=== PATIENT | female | born 1950 | race Caucasian/White ===

== ENCOUNTER 2018-12-05 06:21 | Observation (INO) ==
[2018-12-05] MEDS ORDERED: IOPAMIDOL 100 ML BOTTLE IV ONE (06:22)
[2018-12-05 06:42] LABS: POC Blood Urea Nitrogen 17 mg/dl (8-23); POC CO2 26 mmol/L (22-30); POC Calcium, Ionized 1.06 mmol/L (1.16-1.32); POC Chloride 97 mmol/L (96-108); POC Creatinine 0.9 mg/dl (0.6-1.1); POC Glucose, Random 131 mg/dL (70-105); POC Potassium 3.3 mmol/L (3.3-5.1); POC Sodium 136 mmol/L (133-145)
[2018-12-05] MEDS ORDERED: LACTATED RINGERS 1,000 ML IV ONE (07:16)
[2018-12-05] MEDS ORDERED: PROMETHAZINE 25 MG/ML VIAL IV ONE ×2 (07:35→12:45)
[2018-12-05] MEDS ORDERED: HYDROmorphone 2 MG/ML VIAL IV PRN (07:42)
--- NOTE | 2018-12-05 07:43 | Emergency Department Note ---
Nausea/Vomiting/Diarrhea HPI - General Source: patient Mode of arrival: ambulatory Limitations: no limitations - History of Present Illness MD complaint: nausea, vomiting, diarrhea <Edgar Francisco - Last Filed: 12/05/18 08:52> <Wilberto Olivier - Last Filed: 12/06/18 07:17> - General Chief complaint: Nausea/Vomiting/Diarrhea Stated complaint: n/v, abd pain Time Seen by Provider: 12/05/18 07:32 - History of Present Illness HPI Narrative: Patient feels like she has a flare up of her ulcerative colitis. She states she occasionally gets constipation and then she takes something for the constipation and when she starts developing diarrhea the diarrhea does not seem to settle down or stop it. Seems like she has chronic diarrhea most the time. She has had some crampy abdominal pain, seen here yesterday morning, prescribed Phenergan after she was given some IV fluids and she has not yet filled her prescription for Phenergan. Does have nausea. Decreased by mouth intake last 24 hours. Also diarrhea last 24 hours. Feels weak in general but still ambulatory. No chest pain no cough no fevers or chills. Does have some low back pain on the right side denies flank pain. (Edgar Francisco) - Related Data Home Medications Medication Instructions Recorded Confirmed Levothyroxine [Synthroid] 125 mcg PO DAILY 07/09/16 12/05/18 Previous Rx's Medication Instructions Recorded Levofloxacin [Levaquin] 500 mg PO DAILY #10 tab 12/05/18 metroNIDAZOLE [Flagyl] 500 mg PO TID #30 tab 12/05/18 Allergies Allergy/AdvReac Type Severity Reaction Status Date / Time acetaminophen [ACETAMINOPHEN] Allergy Mild "PASS OUT" Verified 12/05/18 15:48 aspirin [ASPIRIN] Allergy Mild "PASS OUT" Verified 12/05/18 15:48 morphine [MORPHINE] Allergy Mild EMESIS Verified 12/05/18 15:48 ondansetron [From Zofran] Allergy Verified 12/05/18 06:29 polyethylene glycol 3350 Allergy Unknown Verified 12/05/18 06:29 [From Miralax] hydrocodone [HYDROCODONE] AdvReac Mild NAUSEA Verified 12/05/18 15:48 EMESIS Review of Systems Constitutional: Denies: fever, chills Eyes: Denies: eye pain ENT ED: Denies: ear pain, throat pain Cardiovascular: Reports: dyspnea on exertion. Denies: chest pain, palpitations Respiratory: Denies: shortness of breath, cough Gastrointestinal: Reports: abdominal pain, nausea, vomiting Genitourinary: Denies: dysuria, urgency, frequency Musculoskeletal: Reports: back pain. Denies: joint swelling Integumentary: Denies: rash Neurological: Reports: weakness. Denies: headache Endocrine: Reports: fatigue Hematological/Lymphatic: Denies: easy bleeding Allergic/Immunologic: Denies: facial swelling <Edgar Francisco - Last Filed: 12/05/18 08:52> Past Medical History - Past Medical History Source: old records reviewed Medical history: Reports: CAD (coronary artery disease), myocardial infarction, thyroid disease, other (history of endocarditis and meningitis, pancreatitis; diverticulitis; heart murmur. DENIES PUD, KIDNEY STONES.) Psychiatric history: Denies: anxiety, depression Surgical history ED: Reports: appendectomy, thyroidectomy Family history: Reports: non-contributory - Social History smoking status: Current every day smoker Alcohol use: Reports: None Drug use: Reports: none <Edgar Francisco - Alex Filed: 12/05/18 08:52> Physical Exam Limitations: no limitations General appearance: alert, in no apparent distress Head: atraumatic, normocephalic, normal inspection Eye: Present: normal appearance, PERRL, EOMI. Absent: scleral icterus, conjunct ival injection ENT: normal exam, normal oropharynx, mucous membranes moist, TM's normal bilaterally Neck: Present: normal inspection, full ROM, trachea midline. Absent: tenderness, meningismus, lymphadenopathy, thyromegaly Chest: Present: normal inspection, symmetric chest wall rise Respiratory: Present: normal lung sounds bilaterally. Absent: respiratory distress, rales/crackles, wheezes Cardiovascular: Present: regular rate, normal rhythm, systolic murmur Abdominal: Present: soft, normal bowel sounds. Absent: distention, tenderness, guarding, rebound Extremities: Present: normal inspection, full ROM. Absent: tenderness Back: Present: normal inspection. Absent: CVA tenderness (R), CVA tenderness (L) Neurological: Present: alert, oriented X3, CN II-XII intact. Absent: motor sensory deficit Psychiatric: Present: normal affect Skin: Present: warm, dry, intact, normal color. Absent: rash, diaphoresis, erythema, pallor <Edgar Francisco - Last Filed: 12/05/18 08:52> Course <Edgar Francisco - Last Filed: 12/05/18 08:52> - Reevaluation(s) Reevaluation #1: White blood cell count elevated at 20,000. Also she has [address] out to Dr. Quick 9 AM. Started on antibiotics. Abdominal x-rays ordered. (Edgar Francisco) Vital Signs Temperature 98.3 F 12/05/18 06:24 Pulse Rate 74 12/05/18 06:24 Respiratory Rate 18 12/05/18 06:24 Blood Pressure 160/60 12/05/18 06:24 Pulse Oximetry (%) 100 12/05/18 06:24 Temperature 98 F 12/06/18 04:00 Pulse Rate 72 12/06/18 04:00 Respiratory Rate 16 12/06/18 04:00 Blood Pressure 128/67 12/06/18 04:00 Pulse Oximetry (%) 97 12/06/18 04:00 Nausea/Vomiting/Diarrhea - Lab Data Result diagrams: 12/05/18 06:38 12/05/18 06:38 <Edgar Francisco - Last Filed: 12/05/18 08:52> - Lab Data Result diagrams: 12/06/18 03:58 12/06/18 03:58 <Wilberto Olivier - Last Filed: 12/06/18 07:17> - [facility] Narrative Medical decision making narrative: Continuation of Dr. Francisco's work-up. WBC was elevated at 20,000. CT of the abdomen revealed diverticulosis but no diverticulitis. Remainder of the CT was negative. Patient continued having vomiting. Dr Castelan contacted and patient to be admitted for protracted vomiting and elevated WBCs (Wilberto Olivier) - Lab Data Lab Results 12/05/18 12/05/18 12/05/18 Range/Units 06:34 06:38 06:38 WBC 20.5 H (4.5-11.0) K/mcL RBC 4.84 (4.00-5.20) M/mcL Hgb 13.8 (12.0-15.0) g/dL Hct 42.8 (36.0-48.0) % POC Hct 43.0 (36.0-48.0) % MCV 88.4 (80.0-100.0) fL MCH 28.5 (26.0-34.0) pg MCHC 32.3 (31.0-36.0) g/dL RDW 12.9 (11.5-14.5) % Plt Count 309 (140-440) K/mcL MPV 9.7 (7.4-10.4) fL Total Counted 100 Seg Neutrophils % 80 H (38-78) % Band Neutrophils % 5 (0-10) % Lymphocytes % 10 L (15-49) % Monocytes % (Manual) 4 (1-12) % Eosinophils % (Manual) 1 (0-7) % Platelet Estimate Normal (NORMAL) RBC Morphology Normal (NORMAL) VBG Lactic Acid (0.5-2.0) mmol/L POC Sodium 136 (133-145) mmol/L Sodium 136 (133-145) mmol/L POC Potassium 3.3 (3.3-5.1) mmol/L Potassium 3.3 (3.3-5.1) mmol/L POC Chloride 97 (96-108) mmol/L Chloride 94 L (96-108) mmol/L Carbon Dioxide 24 (22-30) mmol/L POC Total CO2 26 (22-30) mmol/L Anion Gap 18.0 H (8-16) POC BUN 17 (8-23) mg/dl BUN 17 (8-23) mg/dl Creatinine 0.9 (0.6-1.1) mg/dl POC Creatinine 0.9 (0.6-1.1) mg/dl GFR Calculation 67 Glucose 125 H (70-105) mg/dL POC Glucose 131 H (70-105) mg/dL Calcium 9.0 (8.6-10.4) mg/dl POC WB Ioniz Calcium 1.06 L (1.16-1.32) mmol/L Total Bilirubin 0.3 (0.0-1.0) mg/dL AST 18 (0-37) U/l ALT 16 (0-40) U/l Alkaline Phosphatase 95 (39-117) U/L C-Reactive Protein 0.8 (0.0-0.8) mg/dl Total Protein 7.3 (5.9-8.4) gm/dL Albumin 4.2 (3.2-5.2) gm/dL Globulin 3.1 (2.2-3.7) gm/dL Albumin/Globulin Ratio 1.4 (1.0-2.3) Urine Color Urine Appearance Urine pH (5.0-9.0) Ur Specific [place] (1.000-1.035) Urine Protein (NEG) mg/dL Urine Glucose (UA) (NEG) mg/dL Urine Ketones (NEG) mg/dL Urine Occult Blood (<0.03) mg/dL Urine Nitrate (NEG) Urine Bilirubin (NEG) mg/dL Urine Urobilinogen (NEG) mg/dL Ur Leukocyte Esterase (NEG) /uL Urine RBC (0-1) /hpf Urine WBC (0-4) /hpf Ur Squamous Epith Cells (0-4) /hpf Ur Transition Epith Cell (0-2) /hpf Urine Bacteria (0) /hpf Urine Mucus (0) /hpf Ur Culture Indicated? 12/05/18 12/05/18 Range/Units 07:57 09:30 WBC (4.5-11.0) K/mcL RBC (4.00-5.20) M/mcL Hgb (12.0-15.0) g/dL Hct (36.0-48.0) % POC Hct (36.0-48.0) % MCV (80.0-100.0) fL MCH (26.0-34.0) pg MCHC (31.0-36.0) g/dL RDW (11.5-14.5) % Plt Count (140-440) K/mcL MPV (7.4-10.4) fL Total Counted Seg Neutrophils % (38-78) % Band Neutrophils % (0-10) % Lymphocytes % (15-49) % Monocytes % (Manual) (1-12) % Eosinophils % (Manual) (0-7) % Platelet Estimate (NORMAL) RBC Morphology (NORMAL) VBG Lactic Acid 1.2 (0.5-2.0) mmol/L POC Sodium (133-145) mmol/L Sodium (133-145) mmol/L POC Potassium (3.3-5.1) mmol/L Potassium (3.3-5.1) mmol/L POC Chloride (96-108) mmol/L Chloride (96-108) mmol/L Carbon Dioxide (22-30) mmol/L POC Total CO2 (22-30) mmol/L Anion Gap (8-16) POC BUN (8-23) mg/dl BUN (8-23) mg/dl Creatinine (0.6-1.1) mg/dl POC Creatinine (0.6-1.1) mg/dl GFR Calculation Glucose (70-105) mg/dL POC Glucose (70-105) mg/dL Calcium (8.6-10.4) mg/dl POC WB Ioniz Calcium (1.16-1.32) mmol/L Total Bilirubin (0.0-1.0) mg/dL AST (0-37) U/l ALT (0-40) U/l Alkaline Phosphatase (39-117) U/L C-Reactive Protein (0.0-0.8) mg/dl Total Protein (5.9-8.4) gm/dL Albumin (3.2-5.2) gm/dL Globulin (2.2-3.7) gm/dL Albumin/Globulin Ratio (1.0-2.3) Urine Color Straw Urine Appearance Clear Urine pH 6.0 (5.0-9.0) Ur Specific [place] 1.014 (1.000-1.035) Urine Protein 30 A (NEG) mg/dL Urine Glucose (UA) Negative (NEG) mg/dL Urine Ketones 20 A (NEG) mg/dL Urine Occult Blood Neg (<0.03) mg/dL Urine Nitrate Neg (NEG) Urine Bilirubin Neg (NEG) mg/dL Urine Urobilinogen Neg (NEG) mg/dL Ur Leukocyte Esterase Neg (NEG) /uL Urine RBC 1 (0-1) /hpf Urine WBC 1 (0-4) /hpf Ur Squamous Epith Cells < 1 (0-4) /hpf Ur Transition Epith Cell < 1 (0-2) /hpf Urine Bacteria 0 (0) /hpf Urine Mucus Few (0) /hpf Ur Culture Indicated? No Disposition Pt seen by DRYWALL TAPER/PA only: No <Edgar Francisco - Last Filed: 12/05/18 08:52> <Wilberto Olivier - Last Filed: 12/06/18 07:17> Clinical Impression: Colitis, Nausea & vomiting Disposition: Xfer As Inpt ([facility]) Condition: Fair
[2018-12-05 07:50] LABS: Hematocrit 42.8 % (36.0-48.0); Hemoglobin 13.8 g/dL (12.0-15.0); Mean Cell Volume 88.4 fL (80.0-100.0); Mean Corpuscular HGB Conc 32.3 g/dL (31.0-36.0); Mean Platelet Volume 9.7 fL (7.4-10.4); Platelet Count 309 K/mcL (140-440); RBC 4.84 M/mcL (4.00-5.20); Red Cell Distribution Width 12.9 % (11.5-14.5); WBC 20.5 K/mcL (4.5-11.0)
[2018-12-05] MEDS: LACTATED RINGERS 1,000 ML IV SCH ×2 (07:54→16:27)
[2018-12-05 08:16] LABS: ALT/SGPT 16 U/l (0-40); AST/SGOT 18 U/l (0-37); Albumin 4.2 gm/dL (3.2-5.2); Albumin/Globulin Ratio 1.4 (1.0-2.3); Alkaline Phosphatase 95 U/L (39-117); Bilirubin,Total 0.3 mg/dL (0.0-1.0); Blood Urea Nitrogen 17 mg/dl (8-23); C-Reactive Protein 0.8 mg/dl (0.0-0.8); Carbon Dioxide 24 mmol/L (22-30); Chloride 94 mmol/L (96-108); Globulin 3.1 gm/dL (2.2-3.7); Glomerular Filtration Rate 67; Glucose 125 mg/dL (70-105)
[2018-12-05 08:21] LABS: Band Neutrophils % 5 % (0-10); Eosinophils % (Manual) 1 % (0-7); Lymphocytes % 10 % (15-49); Monocytes % (Manual) 4 % (1-12); Platelet Estimate NORMAL (NORMAL); RBC Morphology NORMAL (NORMAL); Segmented Neutrophils % 80 % (38-78)
[2018-12-05] MEDS ORDERED: metroNIDAZOLE 500 MG/100 ML BAG IV ONE (08:52)
[2018-12-05] MEDS ORDERED: CIPROFLOXACIN 400 MG/200 ML BAG IV ONE (08:53)
[2018-12-05 09:08] LABS: Appearance,Urine CLEAR; Bacteria,Urine 0 /hpf (0); Bilirubin,Urine NEG (NEG); Color,Urine STRAW; Culture Indicated,Urine NO; Glucose,Urine (UA) NEGATIVE (NEG); Ketones,Urine 20 mg/dL (NEG); Leukocyte Esterase,Urine NEG /uL (NEG); Mucus,Urine FEW /hpf (0); Nitrate,Urine NEG (NEG); Protein,Urine 30 mg/dL (NEG); Specific Gravity,Urine 1.014 (1.000-1.035); Urine Blood NEG mg/dL (<0.03); Urine RBC 1 /hpf (0-1); Urine Squamous Epithelial Cell < 1 /hpf (0-4); Urine Transitional Epi Cells < 1 /hpf (0-2); Urine WBC 1 /hpf (0-4); Urobilinogen,Urine NEG (NEG)
--- NOTE | 2018-12-05 09:51 | Emergency Department Note ---
Nausea/Vomiting/Diarrhea HPI - General Chief complaint: Nausea/Vomiting/Diarrhea Stated complaint: n/v, abd pain Time Seen by Provider: 12/05/18 07:32 Source: patient Mode of arrival: ambulatory Limitations: no limitations - History of Present Illness MD complaint: nausea, vomiting, diarrhea - Related Data Home Medications Medication Instructions Recorded Confirmed Levothyroxine [Synthroid] 125 mcg PO DAILY 07/09/16 03/31/18 Previous Rx's Medication Instructions Recorded Levofloxacin [Levaquin] 500 mg PO DAILY #10 tab 12/05/18 metroNIDAZOLE [Flagyl] 500 mg PO TID #30 tab 12/05/18 Allergies Allergy/AdvReac Type Severity Reaction Status Date / Time acetaminophen [ACETAMINOPHEN] Allergy Unknown "PASS OUT" Verified 12/05/18 06:29 aspirin [ASPIRIN] Allergy Unknown "PASS OUT" Verified 12/05/18 06:29 morphine [MORPHINE] Allergy Unknown EMESIS Verified 12/05/18 06:29 ondansetron [From Zofran] Allergy Verified 12/05/18 06:29 polyethylene glycol 3350 Allergy Unknown Verified 12/05/18 06:29 [From Miralax] hydrocodone [HYDROCODONE] AdvReac Unknown NAUSEA Verified 12/05/18 06:29 EMESIS Review of Systems Constitutional: Denies: fever, chills Eyes: Denies: eye pain ENT ED: Denies: ear pain, throat pain Cardiovascular: Reports: dyspnea on exertion. Denies: chest pain, palpitations Respiratory: Denies: shortness of breath, cough Gastrointestinal: Reports: abdominal pain, nausea, vomiting Genitourinary: Denies: dysuria, urgency, frequency Musculoskeletal: Reports: back pain. Denies: joint swelling Integumentary: Denies: rash Neurological: Reports: weakness. Denies: headache Endocrine: Reports: fatigue Hematological/Lymphatic: Denies: easy bleeding Allergic/Immunologic: Denies: facial swelling Past Medical History - Past Medical History Medical history: Reports: CAD (coronary artery disease), myocardial infarction, thyroid disease, other (history of endocarditis and meningitis, pancreatitis; diverticulitis; heart murmur. DENIES PUD, KIDNEY STONES.) Psychiatric history: Denies: anxiety, depression Surgical history ED: Reports: appendectomy, thyroidectomy - Social History smoking status: Current every day smoker Alcohol use: Reports: None Drug use: Reports: none Physical Exam Limitations: no limitations General appearance: alert, in no apparent distress Course Vital Signs Temperature 98.3 F 12/05/18 06:24 Pulse Rate 74 12/05/18 06:24 Respiratory Rate 18 12/05/18 06:24 Blood Pressure 160/60 12/05/18 06:24 Pulse Oximetry (%) 100 12/05/18 06:24 Temperature 98.3 F 12/05/18 06:24 Pulse Rate 70 12/05/18 12:04 Respiratory Rate 18 12/05/18 06:24 Blood Pressure 166/75 12/05/18 12:01 Pulse Oximetry (%) 96 12/05/18 12:04 Nausea/Vomiting/Diarrhea - MDM Narrative Medical decision making narrative: Continuation of Dr. Francisco's work-up patient has been unable to give us a stool sample she has not had diarrhea for the past 24 hours. States yesterday she had nausea vomiting with some diarrhea with some diffuse abdominal pain this time she has no signs or symptoms but she was given a pain injection WBC is 20,500 and hemoglobin 13.8 hematocrit of 42.8 two-view abdomen is negative with no air-fluid levels. CT of the abdomen has been ordered with contrast. Patient had a colonoscopy 10 years ago which she states was normal she was referred to tin cutter 1 year ago for similar symptoms but she became too busy to keep that appointment as her was in poor health at that time. She was referred to Dr. Barfield but has not yet made that appointment. She has not been diagnosed with ulcerative colitis and is not on any medications for this. States her previous colonoscopy showed diverticulosis but no diverticulitis urine test is negativeSodium is 136 the potassium 3.3 the BUN is 17 the creatinine 0.[address] of the abdomen shows no diverticulitis with some diverticulosis no other abnormality seen. Waiting for her to give us a stool sample she has a referral to see Dr. Barfield for colonoscopy and continued work-up Dr. Francisco as ordered Cipro and Flagyl - Lab Data Result diagrams: 12/05/18 06:38 12/05/18 06:38 Lab Results 12/05/18 12/05/18 12/05/18 Range/Units 06:34 06:38 06:38 WBC 20.5 H (4.5-11.0) K/mcL RBC 4.84 (4.00-5.20) M/mcL Hgb 13.8 (12.0-15.0) g/dL Hct 42.8 (36.0-48.0) % POC Hct 43.0 (36.0-48.0) % MCV 88.4 (80.0-100.0) fL MCH 28.5 (26.0-34.0) pg MCHC 32.3 (31.0-36.0) g/dL RDW 12.9 (11.5-14.5) % Plt Count 309 (140-440) K/mcL MPV 9.7 (7.4-10.4) fL Total Counted 100 Seg Neutrophils % 80 H (38-78) % Band Neutrophils % 5 (0-10) % Lymphocytes % 10 L (15-49) % Monocytes % (Manual) 4 (1-12) % Eosinophils % (Manual) 1 (0-7) % Platelet Estimate Normal (NORMAL) RBC Morphology Normal (NORMAL) VBG Lactic Acid (0.5-2.0) mmol/L POC Sodium 136 (133-145) mmol/L Sodium 136 (133-145) mmol/L POC Potassium 3.3 (3.3-5.1) mmol/L Potassium 3.3 (3.3-5.1) mmol/L POC Chloride 97 (96-108) mmol/L Chloride 94 L (96-108) mmol/L Carbon Dioxide 24 (22-30) mmol/L POC Total CO2 26 (22-30) mmol/L Anion Gap 18.0 H (8-16) POC BUN 17 (8-23) mg/dl BUN 17 (8-23) mg/dl Creatinine 0.9 (0.6-1.1) mg/dl POC Creatinine 0.9 (0.6-1.1) mg/dl GFR Calculation 67 Glucose 125 H (70-105) mg/dL POC Glucose 131 H (70-105) mg/dL Calcium 9.0 (8.6-10.4) mg/dl POC WB Ioniz Calcium 1.06 L (1.16-1.32) mmol/L Total Bilirubin 0.3 (0.0-1.0) mg/dL AST 18 (0-37) U/l ALT 16 (0-40) U/l Alkaline Phosphatase 95 (39-117) U/L C-Reactive Protein 0.8 (0.0-0.8) mg/dl Total Protein 7.3 (5.9-8.4) gm/dL Albumin 4.2 (3.2-5.2) gm/dL Globulin 3.1 (2.2-3.7) gm/dL Albumin/Globulin Ratio 1.4 (1.0-2.3) Urine Color Urine Appearance Urine pH (5.0-9.0) Ur Specific [place] (1.000-1.035) Urine Protein (NEG) mg/dL Urine Glucose (UA) (NEG) mg/dL Urine Ketones (NEG) mg/dL Urine Occult Blood (<0.03) mg/dL Urine Nitrate (NEG) Urine Bilirubin (NEG) mg/dL Urine Urobilinogen (NEG) mg/dL Ur Leukocyte Esterase (NEG) /uL Urine RBC (0-1) /hpf Urine WBC (0-4) /hpf Ur Squamous Epith Cells (0-4) /hpf Ur Transition Epith Cell (0-2) /hpf Urine Bacteria (0) /hpf Urine Mucus (0) /hpf Ur Culture Indicated? 12/05/18 12/05/18 Range/Units 07:57 09:30 WBC (4.5-11.0) K/mcL RBC (4.00-5.20) M/mcL Hgb (12.0-15.0) g/dL Hct (36.0-48.0) % POC Hct (36.0-48.0) % MCV (80.0-100.0) fL MCH (26.0-34.0) pg MCHC (31.0-36.0) g/dL RDW (11.5-14.5) % Plt Count (140-440) K/mcL MPV (7.4-10.4) fL Total Counted Seg Neutrophils % (38-78) % Band Neutrophils % (0-10) % Lymphocytes % (15-49) % Monocytes % (Manual) (1-12) % Eosinophils % (Manual) (0-7) % Platelet Estimate (NORMAL) RBC Morphology (NORMAL) VBG Lactic Acid 1.2 (0.5-2.0) mmol/L POC Sodium (133-145) mmol/L Sodium (133-145) mmol/L POC Potassium (3.3-5.1) mmol/L Potassium (3.3-5.1) mmol/L POC Chloride (96-108) mmol/L Chloride (96-108) mmol/L Carbon Dioxide (22-30) mmol/L POC Total CO2 (22-30) mmol/L Anion Gap (8-16) POC BUN (8-23) mg/dl BUN (8-23) mg/dl Creatinine (0.6-1.1) mg/dl POC Creatinine (0.6-1.1) mg/dl GFR Calculation Glucose (70-105) mg/dL POC Glucose (70-105) mg/dL Calcium (8.6-10.4) mg/dl POC WB Ioniz Calcium (1.16-1.32) mmol/L Total Bilirubin (0.0-1.0) mg/dL AST (0-37) U/l ALT (0-40) U/l Alkaline Phosphatase (39-117) U/L C-Reactive Protein (0.0-0.8) mg/dl Total Protein (5.9-8.4) gm/dL Albumin (3.2-5.2) gm/dL Globulin (2.2-3.7) gm/dL Albumin/Globulin Ratio (1.0-2.3) Urine Color Straw Urine Appearance Clear Urine pH 6.0 (5.0-9.0) Ur Specific [place] 1.014 (1.000-1.035) Urine Protein 30 A (NEG) mg/dL Urine Glucose (UA) Negative (NEG) mg/dL Urine Ketones 20 A (NEG) mg/dL Urine Occult Blood Neg (<0.03) mg/dL Urine Nitrate Neg (NEG) Urine Bilirubin Neg (NEG) mg/dL Urine Urobilinogen Neg (NEG) mg/dL Ur Leukocyte Esterase Neg (NEG) /uL Urine RBC 1 (0-1) /hpf Urine WBC 1 (0-4) /hpf Ur Squamous Epith Cells < 1 (0-4) /hpf Ur Transition Epith Cell < 1 (0-2) /hpf Urine Bacteria 0 (0) /hpf Urine Mucus Few (0) /hpf Ur Culture Indicated? No Disposition Pt seen by AIR BAG CURER/PA only: No Clinical Impression: Colitis Disposition: Home, Self-Care Condition: Fair Instructions: Colitis (ED) Additional Instructions: Follow-up with primary care provider. Keep appoint with Dr. Barfield. We will continue antibiotics until seen by tin cutter. Patient unable to give us a stool sample tolerate for results of C. difficile and stool cultures. Prescriptions: Levofloxacin [Levaquin] 500 mg PO DAILY #10 tab metroNIDAZOLE [Flagyl] 500 mg PO TID #30 tab Referrals: Lori Roach [Primary Care Provider] - Time of Disposition: 12:38
--- NOTE | 2018-12-05 13:16 | XRay Report ---
CLINICAL INFORMATION: nausea and vomiting COMPARISON: 03/31/2018 FINDINGS: The stool gas pattern is unremarkable. Minimal residual barium seen within the right and transverse colon. There is no free air, soft tissue mass, organomegaly or pathologic calcification. IMPRESSION: Normal abdomen Interpreted and Authenticated by: Santino Morales 12/05/18
--- NOTE | 2018-12-05 14:24 | Cat Scan Report ---
CLINICAL INFORMATION: Abdominal pain COMPARISON: Abdomen and pelvic CT 09/27/2013 and 03/31/2018 TECHNIQUE: Following enteric contrast, 80 cc of Isovue-300 were injected intravenously, and 60 seconds later, 0.625 mm helical slices were obtained from the mid heart through the subtrochanteric regions. Following reconstruction, 2.5 mm sagittal, coronal and axial reformatted images were processed and reviewed at bone, lung and soft tissue windows. Five minutes later, 0.625 mm helical slices were obtained from the mid heart through the kidneys and viewed at soft tissue windows.The exam was performed using radiation dose optimization techniques including, but not limited to, automated exposure control, adjustment of the mA and/or kV according to patient size and use of iterative reconstruction technique. FINDINGS: Lung bases show no abnormality - no effusion. The visualized heart is unremarkable. Abdominal images show mild fatty change within the liver. A 6 mm simple cyst in the lateral segment left hepatic lobe and 5 mm mm simple cyst the danii hepatis are noted. No significant hepatic lesions. Gallbladder is unremarkable. The common hepatic and suprapancreatic common bile ducts are mildly dilated - 8 mm with abrupt tapering in the intrapancreatic portion of the common bile duct which contains soft tissue density extending to the ampulla. The pancreatic duct, distal to the ampulla, is moderately dilated - 4 mm. The pancreatic parenchyma is, otherwise, unremarkable. Both kidneys, adrenal glands, spleen and aorta, including aortic branches, are normal in size configuration and attenuation without focal lesion. There is no free air, free fluid or adenopathy. Images through the pelvis show urinary bladder to be unremarkable. Anteflexed postmenopausal uterus spans 4.2 x 16 mm. There is moderate enlargement of the left periuterine and ovarian venous plexus and mild enlargement of the right. Uterine and ovarian venous plexus. This is progressed from the previous CT. Both postmenopausal ovaries are unremarkable. Multiple sigmoid diverticuli with moderate circular muscle hypertrophy is similar previous study. No definite CT evidence for associated diverticulitis. The remainder of the colon is unremarkable. The appendix is surgically absent. Small bowel and stomach are unremarkable. Bone windows show degenerative change in the lumbar spine. IMPRESSION: 1. Soft tissue density within the lumen of the intrapancreatic common bile and proximal pancreatic ducts resulting in mild dilatation of the suprapancreatic common bile and pancreatic ducts. This could represent biliary sludge cholesterol stones or ductal tumor. Suggest: Abdominal MRI/ MRCP for confirmation. 2. Sigmoid diverticulosis, but no CT evidence of diverticulitis. Mild diverticulitis may be CT occult. 3. Moderate enlargement of the periuterine and perivenous plexus - more prominent on the left side. This has increased considerably since the [address] Although this may be asymptomatic, it does predispose to pelvic congestion syndrome as a possible cause for pelvic pain. Interpreted and Authenticated by: Santino Morales 12/05/18
--- NOTE | 2018-12-05 15:19 | Internal Med History&Physical ---
Medical - H&P: HPI Patient information: Note initiated : 12/05/18 at 3:16 pm Service Date, if different from initiated Date: [] Patient: Brian Colon 68 y/o F admitted on for n/v, abd pain. Chief Complaint: [] History of present illness: Ms. Colon is a 68 year old with history of diverticulosis, presents to the emergency room for evaluation of nausea vomiting and dizziness. The patient notes that she was constipated 4 days ago, she took [employer] and this helped her constipation. She is been having diarrhea for the last couple of days, last episode of diarrhea was yesterday this is associated with nausea and vomiting. She also has abdominal pain which is intermittent epigastric to the right upper quadrant region. The patient admits to being dizzy unable to tolerate much p.o., she has had these episodes in the past and given the fact that she has not improved since the symptoms started she came into the hospital for some fluid management. The patient denies any fever chills cough she does have an headache denies any urinary complaints. She is unable to characterize the stools with regards to any blood or mucus presence. The patient denies any new joint pains. Denies any other acute complaint or concern. The patient was treated in the emergency room, she responded initially to some Phenergan and IV fluids however later again developed nausea and vomiting. She had a CT scan of the abdomen done which was negative according to the [facility] read however the radiologist read the CT as soft tissue mass in the distal pancreas, with a wide differential diagnosis. Labs show a WBC count of 20,000, hemoglobin 13.8 platelets 309, potassium 3.3 bicarbonate 24 liver function tests are normal. UA is negative for acute infection. Patient is being admitted to the hospital for further management. We do not have a GI service available today or tomorrow. The patient however has a normal liver function test is hemodynamically stable and has low suspicion for acute cholangitis. Should the patient's liver function tests trend upwards we will transfer the patient to higher center. The patient will get an MRCP done tomorrow morning to further evaluate this dilatation of the common bile duct and possible obstruction All systems: reviewed and no additional remarkable complaints except as stated (as per hpi rest negative.) Medical - H&P: PMH Medical history: Diverticulosis Hypothyroidism Chronic back pain History of Ksenia difficile Surgical history: Appendectomy Pertinent family history: Mother, grandmother and aunts have Crohn's disease Social history: Active smoker Denies alcohol use History of use of marijuana last used few days ago Medical - H&P: Meds Home Medications Medication Instructions Recorded Confirmed Type Levothyroxine [Synthroid] 125 mcg PO DAILY 07/09/16 12/05/18 History Levofloxacin [Levaquin] 500 mg PO DAILY #10 tab 12/05/18 Rx metroNIDAZOLE [Flagyl] 500 mg PO TID #30 tab 12/05/18 Rx Allergies Allergy/AdvReac Type Severity Reaction Status Date / Time acetaminophen [ACETAMINOPHEN] Allergy Unknown "PASS OUT" Verified 12/05/18 06:29 aspirin [ASPIRIN] Allergy Unknown "PASS OUT" Verified 12/05/18 06:29 morphine [MORPHINE] Allergy Unknown EMESIS Verified 12/05/18 06:29 ondansetron [From Zofran] Allergy Verified 12/05/18 06:29 polyethylene glycol 3350 Allergy Unknown Verified 12/05/18 06:29 [From Miralax] hydrocodone [HYDROCODONE] AdvReac Unknown NAUSEA Verified 12/05/18 06:29 EMESIS Medical - H&P: Exam - Constitutional Vitals: Temp Pulse Resp BP Pulse Ox 98.3 F 77 18 171/78 96 12/05/18 06:24 12/05/18 14:07 12/05/18 06:24 12/05/18 12:31 12/05/18 14:07 Exam: GENERAL: The patient is a well-developed, well-nourished in no apparent distress. Is alert and oriented x3. VITAL SIGNS: Reviewed and as noted elsewhere. HEENT: Head is normocephalic and atraumatic. Extraocular muscles are intact. Pupils are equal, round, and reactive to light. Nares appeared normal. Mouth appears any without lesions. Mucous membranes are moist. NECK: Normal to inspection, Supple, No lymphadenopathy or thyromegaly. LUNGS: Air entry equal on both sides, no wheezing, crackles or rhonchi noted. No accessory muscles of respiration HEART: Regular rate and rhythm normal, S1 and S2 heard, no Gallop, S3 or Rub Noted, systolic murmur, tricuspid region ABDOMEN: Sof, and nondistended. Right upperquadrant / Epigastric tenderness. Positive bowel sounds. No hepatosplenomegaly was noted. EXTREMITIES: No cyanosis, clubbing, rash, lesions or edema. NEUROLOGIC: Cranial nerves II through XII are grossly intact. Motor and Sensory System Grossly Intact PSYCHIATRIC: Normal affect, Normal Mood. Appropriate Behavior. SKIN: No ulceration or wounds noted, No jaundice, No rash noted. Medical - H&P: Reslt - Labs CBC & Chem 7: 12/05/18 06:38 12/05/18 06:38 Labs: Short CBC 12/05/18 Range/Units 06:38 WBC 20.5 H (4.5-11.0) K/mcL Hgb 13.8 (12.0-15.0) g/dL Hct 42.8 (36.0-48.0) % Plt Count 309 (140-440) K/mcL BMP 12/05/18 06:38 Sodium 136 Potassium 3.3 Chloride 94 L Carbon Dioxide 24 BUN 17 Creatinine 0.9 Glucose 125 H Calcium 9.0 Liver Function 12/05/18 Range/Units 06:38 Total Bilirubin 0.3 (0.0-1.0) mg/dL AST 18 (0-37) U/l ALT 16 (0-40) U/l Alkaline Phosphatase 95 (39-117) U/L Albumin 4.2 (3.2-5.2) gm/dL Urine 12/05/18 Range/Units 07:57 Urine Color Straw Urine Appearance Clear Urine pH 6.0 (5.0-9.0) Ur Specific [place] 1.014 (1.000-1.035) Urine Protein 30 A (NEG) mg/dL Urine Glucose (UA) Negative (NEG) mg/dL Medical - H&P: A/P - Narrative A/P Narrative: A/P Nausea/Vomiting Dialated CBD Leucocytosis Hypothyroidism Chronic back pain Tobacco abuse Marijuana use Plan Admit as obs, med surg IV fluids, phenergan and aidan reglanj, check for C diff IV famotid MRCP In AM, trend LFT check procalcitonin, but wbc appears stress related Resume home medications once verified DVT hep sq Diet Regular Full code
[2018-12-05] MEDS ORDERED: PROCHLORPERAZINE 10 MG/2 ML VIAL IV ONE (15:33)
[2018-12-05] MEDS ORDERED: PROMETHAZINE 25 MG/ML VIAL IV PRN (15:46)
[2018-12-05] MEDS ORDERED: NALOXONE HCL 0.4 MG/ML VIAL IV PRN (15:46)
[2018-12-05] MEDS ORDERED: GADOTERIDOL INJ 15 ML/VIAL IV ONE (15:46)
[2018-12-05] MEDS ORDERED: traZODone HCL 50 MG TABLET PO PRN (15:46)
[2018-12-05] MEDS ORDERED: ALBUTEROL SULFATE 2.5 MG/3 ML NEBULIZER NEB PRN (15:46)
[2018-12-05] MEDS: DEXTROSE 5%-1/2NS 1,000 ML IV SCH (15:55)
[2018-12-05] MEDS: METOCLOPRAMIDE 10 MG/2 ML VIAL IV SCH ×3 (17:48→23:41)
[2018-12-05 18:06] LABS: ALT/SGPT 18 U/l (0-40); AST/SGOT 18 U/l (0-37); Albumin/Globulin Ratio 1.3 (1.0-2.3); Alkaline Phosphatase 78 U/L (39-117); Bilirubin,Total 0.3 mg/dL (0.0-1.0); Blood Urea Nitrogen 12 mg/dl (8-23); Calcium 8.6 mg/dl (8.6-10.4); Carbon Dioxide 25 mmol/L (22-30); Chloride 94 mmol/L (96-108); Glomerular Filtration Rate 90; Glucose 125 mg/dL (70-105)
[2018-12-05] MEDS ORDERED: POTASSIUM CHLORIDE 40 MEQ in DEXTROSE 5% IN WATER 500 ML IV ONE (18:37)
[2018-12-05] MEDS ORDERED: POTASSIUM CHLORIDE 20 MEQ/10 ML VIAL IV ONE (20:37)
[2018-12-05] MEDS: FAMOTIDINE/PF 20 MG/2 ML VIAL IV SCH (20:48)
[2018-12-05] MEDS: HEPARIN 5,000 UNIT/ML VIAL SQ SCH (20:49)
[2018-12-05] MEDS: 0.9 % SODIUM CHLORIDE 10 ML SYRINGE IV SCH (21:07)
[2018-12-05] MEDS ORDERED: hydrALAZINE 20 MG/ML VIAL IV ONE (21:47)
[2018-12-05] MEDS ORDERED: hydrALAZINE 20 MG/ML VIAL IV PRN (21:47)
[2018-12-05] MEDS ORDERED: hydrALAZINE 20 MG/ML VIAL ONE (21:55)
[2018-12-05] MEDS: HYDROmorphone 2 MG/ML VIAL IV PRN (23:51)
[2018-12-06 05:14] LABS: Basophils # (Auto) 0 K/mcL (0.0-0.3); Basophils % (Auto) 0.2 % (0.0-2.0); Eosinophils # (Auto) 0 K/mcL (0.0-0.7); Eosinophils % (Auto) 0 % (0.0-7.0); Granulocytes % (Auto) 77.4 % (38.0-78.0); Hematocrit 38.5 % (36.0-48.0); Hemoglobin 12.5 g/dL (12.0-15.0); Lymphocytes # (Auto) 2.6 K/mcL (1.5-4.8); Lymphocytes % (Auto) 14.5 % (15.5-49.0); Mean Cell Volume 88.6 fL (80.0-100.0); Mean Corpuscular HGB Conc 32.4 g/dL (31.0-36.0); Mean Platelet Volume 9.5 fL (7.4-10.4); Monocytes # (Auto) 1.4 K/mcL (0.1-0.9); Monocytes % (Auto) 7.9 % (1.0-12.0); Platelet Count 276 K/mcL (140-440); RBC 4.34 M/mcL (4.00-5.20); Red Cell Distribution Width 12.5 % (11.5-14.5)
[2018-12-06 05:33] LABS: ALT/SGPT 13 U/l (0-40); AST/SGOT 14 U/l (0-37); Albumin 3.5 gm/dL (3.2-5.2); Albumin/Globulin Ratio 1.3 (1.0-2.3); Alkaline Phosphatase 72 U/L (39-117); Bilirubin,Direct < 0.2 mg/dL (0.0-0.3); Bilirubin,Total 0.3 mg/dL (0.0-1.0); Blood Urea Nitrogen 10 mg/dl (8-23); Calcium 8.4 mg/dl (8.6-10.4); Carbon Dioxide 24 mmol/L (22-30); Chloride 95 mmol/L (96-108); Globulin 2.6 gm/dL (2.2-3.7); Glomerular Filtration Rate 67; Glucose 123 mg/dL (70-105); Lactate Dehydrogenase 212 U/L (94-250); Phosphorous 2.2 mg/dL (2.7-4.5); Triglycerides 90 mg/dl (<150); Uric Acid 3.6 mg/dL (2.5-8.0)
[2018-12-06] MEDS: DEXTROSE 5%-1/2NS 1,000 ML IV SCH (05:50)
[2018-12-06] MEDS: METOCLOPRAMIDE 10 MG/2 ML VIAL IV SCH ×3 (06:09→18:32)
[2018-12-06] MEDS: 0.9 % SODIUM CHLORIDE 10 ML SYRINGE IV SCH ×3 (06:09→20:50)
[2018-12-06] MEDS ORDERED: POTASSIUM CHLORIDE 40 MEQ in DEXTROSE 5% IN WATER 500 ML IV ONE (07:48)
[2018-12-06] MEDS: HEPARIN 5,000 UNIT/ML VIAL SQ SCH (10:05)
[2018-12-06] MEDS: FAMOTIDINE/PF 20 MG/2 ML VIAL IV SCH (10:06)
--- NOTE | 2018-12-06 15:37 | Magnetic Resonance Report ---
CLINICAL HISTORY: Possible soft tissue mass versus sludge within the intrapancreatic common bile duct and ampulla resulting in upstream common bile and pancreatic duct dilatation. TECHNIQUE: Axial diffusion, phase-in phase out, lava pre and dynamic post gadolinium, SSFSE, T2, and coronal SSFSE and FSPGR coronal pre and postcontrast images were acquired of the upper abdomen 3-D SPGR technique was used to create MRCP images COMPARISON: Abdomen and pelvic CT 12/05/2018 FINDINGS: There is an 11 x 9 mm soft tissue mass filling the ampulla, intrapancreatic common bile and proximal Wirsungs' pancreatic duct. It is isointense on T1/T2 and does not exhibit restricted diffusion It demonstrates moderate homogeneous enhancement and is, thus,suspicious for malignancy tumor: either cholangiocarcinoma or ampullary carcinoma. The mass has resulted in upstream common bile dilatation (10 mm). There is also mild dilatation of Santorini pancreatic duct (4 mm). There is no adenopathy or evidence of metastatic disease. The liver, both kidneys, adrenal glands, spleen, and aorta are normal in size, configuration and signal intensity. There is no free air or free fluid. The stomach and visualized small /large bowel are normal. IMPRESSION: 11 x 9 mm enhancing soft tissue mass filling the ampulla, intrapancreatic common bile and the proximal Wirsungs'duct. 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 It results in mild dilatation of the upstream pancreatic and common bile ducts. No evidence of adenopathy or metastases. Suggest GI referral for ERCP and biopsy. Biopsy may or may not require EUS Interpreted and Authenticated by: Santino Morales 12/06/18
[2018-12-06 17:25] LABS: Cancer Antigen 19-9 21.4 U/mL (0.0-35.0)
[2018-12-06 17:29] LABS: Carcinoembryonic Antigen 7.9 ng/mL (0.0-3.4)
--- NOTE | 2018-12-06 18:18 | Transfer Summary ---
Transfer Discharge Sum: Prov Patient information: Note initiated : 12/06/18 at 6:15 pm Service Date, if different from initiated Date: [] Patient: Brian Colon 68 y/o F admitted on 12/05/18 for n/v, abd pain. Chief Complaint: [] Date of admission: 12/05/18 15:45 Discharge Date: 12/06/18 Primary care physician: Lori Roach Consults: 12/05/18 Consult to Physician [CONS] Stat Comment: Consulting Provider: Niranjan Wallis Reason For Exam: Physician to Consult Receiving physician/facility: DR Aguilar, GI Dr Gallegos Hospitalist. Transfer Discharge Sum: Diag - Discharge Diagnosis (1) Mass of ampulla of Vater Status: Acute Transfer Discharge Sum: Med - Medications Active and Home Medications: Home Medications Levothyroxine [Synthroid] 125 mcg PO DAILY 07/09/16 [History Confirmed 12/05/18] Levofloxacin [Levaquin] 500 mg PO DAILY #10 tab 12/05/18 [Rx] metroNIDAZOLE [Flagyl] 500 mg PO TID #30 tab 12/05/18 [Rx] Active Medications Albuterol Sulfate (Ventolin) 2.5 mg NEB Q2HP PRN PRN Reason: Shortness Of Breath Famotidine (Pepcid) 20 mg IV Q12 [facility] Last Admin: 12/06/18 10:06 Dose: 20 mg Documented by: Heparin Sodium (Porcine) (Heparin) 5,000 unit SQ Q12 [facility] Last Admin: 12/06/18 10:05 Dose: 5,000 unit Documented by: Hydralazine HCl (Apresoline) 10 mg IV Q4H PRN PRN Reason: Hypertension Hydromorphone HCl (Dilaudid) 0.5 mg IV Q2HP PRN PRN Reason: pain not controlled by oxycodo Last Admin: 12/05/18 23:51 Dose: 0.5 mg Documented by: Dextrose/Sodium Chloride (Dextrose 5%-1/2ns Iv Solution) 1,000 mls @ 84 mls/hr IV .[id number] [facility] Last Admin: 12/06/18 05:50 Dose: 84 mls/hr Documented by: Metoclopramide HCl (Reglan) 5 mg IV Q6 [facility] Last Admin: 07/15/19 13:34 Dose: 5 mg Documented by: Naloxone HCl (Narcan) 0.1 mg IV Q2MIN PRN PRN Reason: Opiate Reversal Promethazine HCl (Phenergan) 12.5 mg IV Q6HP PRN PRN Reason: Nausea Sodium Chloride (Saline Flush) 10 ml IV Q8 [place] Last Admin: 12/06/18 13:35 Dose: Not Given Documented by: Trazodone HCl (Desyrel) 25 mg PO HSP PRN PRN Reason: Insomnia Last Admin: 12/05/18 23:41 Dose: 25 mg Documented by: Transfer Discharge Sum: Hosp Hospital course: Ms. Colon is a 68 year old with history of diverticulosis, presents to the emergency room for evaluation of nausea vomiting and dizziness. The patient notes that she was constipated 4 days ago, she took [employer] and this helped her constipation. She is been having diarrhea for the last couple of days, last episode of diarrhea was yesterday this is associated with nausea and vomiting. She also has abdominal pain which is intermittent epigastric to the right upper quadrant region. The patient admits to being dizzy unable to tolerate much p.o., she has had these episodes in the past and given the fact that she has not improved since the symptoms started she came into the hospital for some fluid management. The patient denies any fever chills cough she does have an headache denies any urinary complaints. She is unable to characterize the stools with regards to any blood or mucus presence. The patient denies any new joint pains. Denies any other acute complaint or concern. The patient was treated in the emergency room, she responded initially to some Phenergan and IV fluids however later again developed nausea and vomiting. She had a CT scan of the abdomen done which was negative according to the [facility] read however the radiologist read the CT as soft tissue mass in the distal pancreas, with a wide differential diagnosis. Labs show a WBC count of 20,000, hemoglobin 13.8 platelets 309, potassium 3.3 bicarbonate 24 liver function tests are normal. UA is negative for acute infection. Patient is being admitted to the hospital for further management. We do not have a GI service available today or tomorrow. The patient however has a normal liver function test is hemodynamically stable and has low suspicion for acute cholangitis. Should the patient's liver function tests trend upwards we will transfer the patient to higher center. The patient will get an MRCP done tomorrow morning to further evaluate this dilatation of the common bile duct and possible obstruction 12/06 Pt seen examined, no acute issues, doing much better, abdominal pain much improved, pt was able to tolerate po diet after MRCP MRCP done today shows a mass 9mmx 11mm at the cbd, pancreatic duct, causing mild obstruction. I reviewed the case with Dr Aguilar (GI) and Dr Gallegos(Hospitalist) who kindly accepted the patient for transfer. This facility does not have EUS capability hence the need for transfer. - Time Spent with Patient Total time spent providing and/or coordinating transfer services: Greater than 30 minutes Transfer Discharge Sum: Exam - Constitutional Vitals: Vital Signs Temp Pulse Resp BP BP Pulse Ox 12/06/18 16:00 99.0 F 84 18 126/75 95 12/06/18 12:00 98.2 F 84 18 132/57 97 12/06/18 07:32 98.2 F 72 18 114/70 94 12/06/18 04:00 98 F 72 16 128/67 97 12/05/18 23:58 99.0 F 100 H 16 150/81 97 12/05/18 20:54 79 175/79 96 12/05/18 19:19 99.1 F H 75 18 179/72 96 12/05/18 19:14 75 18 96 Intake and Output 12/06/18 12/06/18 12/06/18 05:59 13:59 21:59 Intake Total 1000 240 Output Total 650 400 Balance 350 -400 240 Intake: IV 1000 Dextrose 5%-1/2Ns IV Solution 1 1000 ,000 ml @ 84 mls/hr IV .[id number] [facility] Rx#:[id number] Oral 240 Output: Void Amount 650 400 Other: Meal Lunch Percent of Meal Consumed 50% Urine Appearance Clear Urine Color Bright Yellow Urine Odor Normal Weight 117 lb Patient Weight 12/07/18 05:59 Weight 117 lb Additional comments: Constitutional; Afebrile, cooperative, alert, not in distress. Eyes- No icterus, , No periorbital swelling Ears- Ext ear normal, hearing normal to conversation. Neck- Midline trachea, supple Respiratory system: Air Entry equal on both sides, No crackles or wheezing, no rhonchi. CVS- Rate rhythm regular, S1,S2 heard, no gallop, no rub. 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 Transfer Discharge Sum: Data Procedures and tests throughout hospitalization: Pending Orders 12/05/18 Consult to Physician [CONS] Stat 12/05/18 08:55 Stool Culture and EHEC Stat stool [C. Difficile Toxin B, PCR] Stat 12/05/18 08:57 Fecal Leukocyte Smear Stat 12/05/18 09:30 Blood Culture Stat 12/05/18 14:38 Resuscitation Status Routine 12/05/18 15:46 Case Management Referral .Routine Ambulate-Progressive PRN Condition Routine IV Insertion/Management QSHIFT Intake and Output qshiftio Notify Provider .routine Placement to Observation Routine VTE Risk: Assessment ONCE Vital Signs Q4 Weight Monitoring QHS Regular Diet Albuterol Sulfate [Ventolin] 2.5 mg NEB Q2HP PRN Dextrose 5%-1/2Ns [Dextrose 5%-1/2Ns IV Solution] 1,000 ml IV 84 mls/hr HYDROmorphone [Dilaudid] 0.5 mg IV Q2HP PRN Metoclopramide [Reglan] 5 mg IV Q6 Naloxone HCl [Narcan] 0.1 mg IV Q2MIN PRN Promethazine [Phenergan] 12.5 mg IV Q6HP PRN traZODone HCL [Desyrel] [address] PO HSP PRN RD to Adjust Diet/Supplements as Needed Routine Incentive Spirometry Assess/Tx Q2HWA Nebulizer management .Routine 12/05/18 16:18 Welcome [employer]agon Hostess Referral .Routine 12/05/18 21:00 Famotidine/Pf [Pepcid] 20 mg IV Q12 Heparin 5,000 unit SQ Q12 12/05/18 21:47 hydrALAZINE [Apresoline] 10 mg IV Q4H PRN 12/05/18 22:00 0.9 % Sodium Chloride [Saline Flush] 10 ml IV Q8 12/07/18 04:00 Complete Blood Count DAILY Inpatient Panel DAILY 12/08/18 04:00 Complete Blood Count DAILY Inpatient Panel DAILY 12/09/18 04:00 Complete Blood Count DAILY Inpatient Panel DAILY 12/10/18 04:00 Complete Blood Count DAILY Inpatient Panel DAILY 12/11/18 04:00 Complete Blood Count DAILY Inpatient Panel DAILY 12/12/18 04:00 Complete Blood Count DAILY Inpatient Panel DAILY Transfer Discharge Sum: A/P - Problem Maintenance (1) Mass of ampulla of Vater Status: Acute - Plan Functional capacity at transfer: independent ambulation Disposition: [facility] Quality Measure Queries - VTE Deep Vein Thrombosis/Pulmonary Embolism Present on Admission: No
[2018-12-06] MEDS ORDERED: LORazepam 2 MG/ML VIAL IV ONE (20:04)
[2018-12-06] MEDS: HYDROmorphone 2 MG/ML VIAL IV PRN (20:27)
== END 2018-12-06 20:52 | disposition short-term general hospital (02) ==
LOC: MEDSUR 06:21 → ED 06:21 → MEDSUR 15:45
PROVIDERS: ADMIT Internal Medicine; ATTEND Internal Medicine